=== PATIENT | female | born 1980 | race Two or more races ===

== ENCOUNTER → 2017-07-31 | Outpatient (CLI) | payer OTHER ==
[~2017-07-31] MED LIST: BUCALSEP SPRAY30 ML MM; FLONASE16 GM NASAL; GILTUSS TR TAB1 EACH PO; SYNTHROID50 MCG; ZYRTEC10 MG PO
== END | disposition home or self-care (01) ==
LOC: RAD 501 13:43
DX: M25.551 Pain in right hip (principal); M25.552 Pain in left hip; M25.572 Pain in left ankle and joints of left foot; M25.562 Pain in left knee